=== PATIENT | female | born 1975 | race Hispanic/Latino ===

== ENCOUNTER 2023-11-04 21:35 | Emergency (ER) | payer BC ==
[~2023-11-04] VITALS: Ht 154.9 cm; Wt 45.4 kg
[~2023-11-04 21:35] MED LIST: CEPH500B PO; LOSA1TAB42 PO; METF-444 PO; PIOG30TA10 PO
[2023-11-04 22:21] LABS: BASOPHILS # (AUTO) 0.05 K/uL (0.00-0.20); BASOPHILS % (AUTO) 0.3 % (0.0-5.0); EOSINOPHILS % (AUTO) 0.6 % (0.0-8.0); HEMATOCRIT 25.5 % (36-48); IMMATURE GRANULOCYTE ABSOLUTE 0.16 K/uL (0-1); LYMPHOCYTES # (AUTO) 0.6 K/uL (1.0-4.8); LYMPHOCYTES % (AUTO) 3.9 % (21.0-51.0); MEAN CORPUSCULAR HGB CONC 33.7 g/dL (32.0-36.0); MONOCYTES # (AUTO) 0.6 K/uL (0.1-1.0); MONOCYTES % (AUTO) 3.6 % (3.0-13.0); NEUTROPHILS % (AUTO) 90.6 % (40.0-77.0); PLATELET COUNT (AUTO) 581 K/uL (130-400); RED BLOOD CELL COUNT(AUTO) 3.31 MIL/uL (4.00-5.50); RED CELL DISTRIBUTION WIDTH 13.2 % (11.0-15.5); WHITE BLOOD COUNT (AUTO) 16.6 K/uL (4.8-10.8)
[2023-11-04 22:22] LABS: APPEARANCE,URINE CLEAR (CLEAR); BILIRUBIN,URINE NEGATIVE (NEGATIVE); COLOR,URINE LIGHT-YELLOW (YELLOW); GLUCOSE, URINE (UA) >=1000 mg/dL (NEGATIVE); KETONES,URINE 10 mg/dL (NEGATIVE); LEUKOCYTE ESTERASE ,URINE 25 Leu/uL (NEGATIVE); NITRATE,URINE NEGATIVE (NEGATIVE); OCCULT BLOOD,URINE NEGATIVE (NEGATIVE); PH,URINE 7.5 (5.0-8.0); PROTEIN,URINE 300 mg/dL (NEGATIVE); UROBILINOGEN,URINE 0.2 mg/dL (0.2-1.0)
[2023-11-04 22:23] LABS: ADD UA MICROSCOPIC YES; HCG,QUALITATIVE URINE NEGATIVE (NEGATIVE)
[2023-11-04 22:40] LABS: BACTERIA,URINE Rare /HPF (None Seen); MUCUS,URINE Rare LPF (None Seen); SQUAMOUS EPITHELIAL CELL,UR Rare /HPF (0-2); WBC,URINE 26-50 /HPF (0-1)
[2023-11-04 22:41] LABS: ALBUMIN 1.3 g/dL (3.5-5.0); BILIRUBIN,TOTAL 0.2 mg/dL (0.2-1.0); CREATININE 2.9 mg/dL (0.5-1.5); TOTAL PROTEIN, SERUM 7.7 g/dL (6.0-8.3)
[2023-11-04 23:35] LABS: ABG BASE EXCESS -11.1 mmol/L (-2.0-3.0); ABG HCO3 12.7 mmol/L (21.0-28.0); ABG OXYGEN SATURATION 96.7 % (95.0-99.0); ABG PCO2 24 mmHg (32-45); ABG PH 7.333 (7.35-7.450); DEVICE COMMENT LR; PO2, ARTERIAL BG 92.1 mmHg (83.0-108.0); VENT MODE, BG ROOM AIR (ROOM AIR)
[2023-11-04] MEDS: ZOSYN 3.375GM +NS 50ML IVPB ONE (23:55)
[2023-11-04] MEDS: 0.9%NACL 1000ML 2,000 ML IV ONE (23:55)
[2023-11-05] MEDS ORDERED: ACETAMINOPHEN 325 MG TAB PO PRN (01:00)
[2023-11-05] MEDS ORDERED: MAGNESIUM 2GM PREMIX 50ML 50 ML IV PRN (01:00)
[2023-11-05] MEDS ORDERED: POTASSIUM CHLORIDE 10% ELIXIR 20 MEQ/15 ML UDCUP PO PRN (01:00)
[2023-11-05] MEDS ORDERED: CLONIDINE HCL 0.1 MG TABLET PO PRN (01:00)
[2023-11-05] MEDS ORDERED: LACTATED RINGERS 1000ML 1,000 ML IV SCH (01:00)
[2023-11-05] MEDS ORDERED: MORPHINE 4 MG SYG IV PRN (01:00)
[2023-11-05] MEDS ORDERED: KCL 20 MEQ ERTAB PO PRN (01:00)
[2023-11-05] MEDS ORDERED: POTASSIUM CHLORIDE 20MEQ/100ML 100 ML IV PRN (01:00)
[2023-11-05] MEDS: INSULIN HUMULIN R 100 UNIT/ML 3ML IV STA (01:16)
[2023-11-05 01:21] LABS: THYROID STIMULATING HORMONE 1.95 uIU/mL (0.36-3.74)
[2023-11-05 01:24] LABS: % IRON SATURATION 14.1 % (22-44)
[2023-11-05 01:33] LABS: B-TYPE NATRIURETIC PEPTIDE 41 pg/mL (0-100)
[2023-11-05 02:15] LABS: RAPID GROUP A STREP positive (NEGATIVE)
[2023-11-05 02:18] LABS: SARS-CoV-2, RNA, NAAT NEGATIVE SARS CoV-2 (NEGATIVE)
[2023-11-05] MEDS: HYDRALAZINE 20MG/ML VIAL IV ONE (02:21)
[2023-11-05 02:23] LABS: INFLUENZA TYPE A Negative For Type A (NEGATIVE); INFLUENZA TYPE B Negative For Type B (NEGATIVE)
[2023-11-05] MEDS: LABETALOL 20MG VIAL IV ONE (03:20)
[2023-11-05] MEDS: LABETALOL 20MG SYG IV ONE (03:36)
[2023-11-05] MEDS: 0.9%NACL 1000ML 1,434 ML IV ONE (03:38)
[2023-11-05] MEDS: CLONIDINE HCL 0.1 MG TABLET PO ONE (03:40)
[2023-11-05] MEDS: ACETAMINOPHEN 325 MG TAB PO PRN (03:50)
[2023-11-05 04:06] LABS: HEMOGLOBIN A1C 12.2 % (4.0-6.0)
[2023-11-05] MEDS: LACTATED RINGERS 1000ML 1,000 ML IV SCH (04:06)
[2023-11-05 04:10] LABS: CREATININE,URINE RANDOM 42 mg/dL (30-135); SODIUM,URINE RANDOM 36 mmol/l (40-220)
[2023-11-05] MEDS: ONDANSETRON 4MG INJ IV PRN (06:29)
[2023-11-05] MEDS: MORPHINE 2 MG SYG IV PRN (06:29)
[2023-11-05 06:42] VITALS: BP 147/83; PULSE 112; RESP 16; O2SAT 99
[2023-11-05] MEDS: INSULIN HUMULIN R 100 UNIT/ML 3ML SQ SCH (07:47)
[2023-11-05] MEDS ORDERED: PANTOPRAZOLE 40 MG TAB DR PO SCH (09:00)
[2023-11-05] MEDS ORDERED: ENOXAPARIN SODIUM 30 MG/0.3 ML SQ SCH (09:00)
[2023-11-05] MEDS ORDERED: FAMOTIDINE 20MG TAB PO SCH (09:00)
[2023-11-05] MEDS ORDERED: AMLODIPINE 5 MG TAB PO SCH (09:00)
[2023-11-05] MEDS ORDERED: LISINOPRIL 10 MG TABLET PO SCH (09:00)
[2023-11-05] MEDS ORDERED: HEPARIN 5,000 UNIT VIAL SQ SCH (09:00)
[2023-11-05] MEDS ORDERED: BALSAM PERU/CASTOR OIL 60 GM TUBE TP SCH (09:00)
[2023-11-05] MEDS ORDERED: ZOSYN 3.375GM+NS 50ML 50 ML IV SCH (09:00)
== END 2023-11-05 08:41 | disposition short-term general hospital (02) ==
LOC: EDH 21:35
DX: S00.83XA Contusion of other part of head, initial encounter (principal); A41.9 Sepsis, unspecified organism; E11.65 Type 2 diabetes mellitus with hyperglycemia; H70.91 Unspecified mastoiditis, right ear; N39.0 Urinary tract infection, site not specified; N17.9 Acute kidney failure, unspecified; I10 Essential (primary) hypertension; Z79.84 Long term (current) use of oral hypoglycemic drugs; Z79.899 Other long term (current) drug therapy; Z90.710 Acquired absence of both cervix and uterus; Z90.49 Acquired absence of other specified parts of digestive tract; Z20.822 Contact with and (suspected) exposure to COVID-19; W06.XXXA Fall from bed, initial encounter; Y93.89 Activity, other specified; Y92.89 Other specified places as the place of occurrence of the external cause; Y99.8 Other external cause status
CPT/HCPCS: 99285; 70450; 96365; 87635; 83036; 83540; 83550; 82570; 83615; 84300; 82803; 83880; 85045; 87040 ×2; 87077 ×2; 87088; 87186 ×2; 87880; 87804 ×2; 82948; 83605 ×2; 83935; 82010; 81001; 81025; 36415 ×2; 72125; 70486; 36600; 84145; 74176; 96375; 96361; 71045; 96372; 80050; J7030; J2543; J1815 ×2; J7120; J2270; J0360; J2405; 80053; 84443; 85025